=== PATIENT | female | born 1990 | race Caucasian/White ===

== ENCOUNTER 2017-07-01 14:15 | Emergency (ER) | payer OTHER ==
[~2017-07-01] VITALS: Ht 165.1 cm; Wt 86.2 kg
--- NOTE | 2017-07-01 17:56 | ED GENERAL ADULT ---
History of Present Illness General Chief Complaint: Female Urogenital Problems Stated Complaint: ?YEAST INFECTION Source: patient Exam Limitations: no limitations Vital Signs & Intake/Output Vital Signs & Intake/Output Vital Signs Date Time Temp Pulse Resp B/P B/P Pulse O2 O2 Flow FiO2 Mean Ox Delivery Rate 07/01 1752 98.2 79 20 132/81 97 Room Air 07/01 1437 98.3 60 20 107/73 97 Room Air Allergies Coded Allergies: No Known Allergies (07/01/17) Triage Note: PT STATES SHE WANTS TO BE CHECKED FOR A YEAST INFECTION. STATES VAGINAL DISCHARGE X 2 WEEKS. PT ALSO STATES SHE GETS H/A'S EVERY DAY AND SHE GETS DIZZY WHEN SHE LAYS DOWN AND SHE HAS NO ENERGY Triage Nurses Notes Reviewed? yes Onset: Abrupt Duration: DAYS/YEARS Timing: recent history Injury Environment: home Severity: moderate, severe No Modifying Factors: none : No Patient currently breastfeeds: No HPI: 26-year-old female comes into the emergency room with 2 primary complaints. The first complaint is headache has been going on for the last 3 years intermittently. The second complaint is vaginal discharge. She reports that the headaches are every day for the last few years. They're located around the temporal region and wraps around her head. She denies any light sensitivity and noise sensitivity. Denies any fever chills or vomiting. Nothing seems to make the symptoms better or worse. She's been expressing some vaginal discharge for the past week. She is sexually active with women. Denies any pain in her abdomen. Denies any increased frequency or burning with urination. Past History Travel History Traveled to [place] past 21 day No Medical History Any Pertinent Medical History? none Surgical History Surgical History: non-contributory Psychosocial History What is your primary language Occitan Tobacco Use: Current Not Daily Daily Tobacco Use Amount/Type: =< 4 Cigarettes daily ETOH Use: occasional use Illicit Drug Use: denies illicit drug use Family History Hx Contributory? No Review of Systems Review of Systems Constitutional: Reports: no symptoms. EENTM: Reports: no symptoms. Respiratory: Reports: no symptoms. Cardiovascular: Reports: no symptoms. GI: Reports: see HPI. Genitourinary: Reports: see HPI. Musculoskeletal: Reports: no symptoms. Skin: Reports: no symptoms. Neurological/Psychological: Reports: no symptoms. Hematologic/Endocrine: Reports: no symptoms. Immunologic/Allergic: Reports: no symptoms. All Other Systems: Reviewed and Negative Physical Exam Physical Exam General Appearance: well developed/nourished, no apparent distress, alert, awake Head: atraumatic, normal appearance Eyes: Bilateral: normal appearance, PERRL, EOMI. 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 No CVA/TIA Diagnosis: No Sepsis Present: No Sepsis Focused Exam Completed? No Progress Differential Diagnoses I considered the following diagnoses in my evaluation of the patient: Gonorrhea and chlamydia, yeast infection, bacterial vaginosis, Trichomonas, tension headache, cluster headache, migraine, Plan of Care: Orders Procedure Date/time Status TRICHOMONAS 07/01 180 Active POTASSIUM HYDROXIDE (JULIETA) 07/01 180 Active GENITAL CULTURE 07/01 1802 Active CHLAMYDIA-GC DNA PROBE 07/02 1427 Active URINE 07/01 1426 Active URINALYSIS 07/01 1426 Active Current Medications Sig/Cici Start time Last Medication Dose Stop Time Status Admin Azithromycin 1,000 MG ONCE ONE 07/01 1814 UNVr (Zithromax) 07/02 1815 Ceftriaxone Sodium 250 MG ONCE ONE 07/01 1814 UNir (Rocephin) 07/02 1815 Fluconazole 150 MG ONCE ONE 07/01 1814 UNVr (Diflucan) 07/02 1815 Metronidazole 2,000 MG ONCE ONE 07/01 181 UNVr (Flagyl) 07/01 181 Microbiology 07/01 180 GENITAL: JULIETA Preparation - ORD 07/01 1802 GENITAL: Trichomonas Preparation - ORD 07/01 180 GENITAL: Genital Culture - ORD 07/02 1427 URINE ROUT: GC DNA Probe - ORD 07/01 142 URINE ROUT: Chlamydia DNA Probe (DEVONTE) - ORD Initial ED EKG: none Comments: 07/01/2017 5:59:06 PM Patient was offered further evaluation for headache with blood work and CT scan. She declined because she cannot stay because she has work. Student perform pelvic exam and reported that there is no gross discharge. However due to the fact the patient is symptomatic with discharge she was prophylactically covered with medications. She is neurologically intact. She is in no apparent distress. She is nontoxic-appearing. Departure Departure Disposition: HOME OR SELF CARE Condition: Stable Clinical Impression Primary Impression: Vaginal discharge Secondary Impressions: Chronic headaches Referrals: H[facility]WS,[place] (PCP/Family) Additional Instructions: Follow-up with your CLIENT [employer] MANAGER doctor. Follow-up with primary care Dr. knight. Return if any concerns worsening symptoms. Patient understands and agrees a plan of care. At this time you declined CT scan of head and blood work. Please go over all results of today's visit with your primary care doctor. Contact your primary care doctor to let them know you were here in the emergency room. There may be nonspecific findings which may not be related to your visit today here in the emergency room but may require further evaluation and chronic monitoring by your primary care doctor. If you had a laceration today the chance of foreign body always remains. You should follow-up with your primary care doctor for recheck in 3-5 days for a wound check. If you had an x-ray done there is a chance that a fracture could have been missed on initial read and you should follow-up with your primary care doctor for repeat x-rays if symptoms persist. If your blood pressure was elevated here in the emergency room please have rechecked by [facility] primary care doctor within the next 48. If you were prescribed a narcotic here in the emergency room or any type of controlled substances you're not allowed to drive while taking this medication or operate any type of heavy machinery. Narcotics can make you feel lightheaded dizziness nausea and can cause constipation. You may need to pickle processor a stool softener. Thank you for choosing [facility] emergency room. Please return to the emergency room immediately if you have any other concerns worsening of symptoms. Departure Forms: Customer Survey General Discharge Information Critical Care Note Critical Care Note Critical Care Time: non-applicable
== END 2017-07-01 19:43 ==
LOC: ERH 14:15
DX: N89.8 Other specified noninflammatory disorders of vagina (principal); R51 Headache
CPT/HCPCS: 87070; 81001; 81025; 87147; 87491; 87591; 96372; J0456; J0696